=== PATIENT | male | born 1960 | race American Indian/Alaskan Native ===

== ENCOUNTER 2021-05-06 13:24 | Observation (INO) | payer OTHER ==
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
--- NOTE | 2021-05-06 13:47 | Cat Scan Report ---
CT HEAD WITHOUT CONTRAST INDICATION / CLINICAL INFORMATION: Left arm numbness and tingling. TECHNIQUE: All CT scans at this location are performed using CT dose reduction for ALARA by means of automated exposure control. COMPARISON: None available. FINDINGS: BRAIN PARENCHYMA: No acute intracranial hemorrhage. No evidence of recent infarct. No mass effect or midline shift. VENTRICULAR SYSTEM/EXTRA-AXIAL SPACES: Ventricles are normal for age. No extra-axial fluid collection . ORBITS: Normal as visualized. SKELETAL SYSTEM/SOFT TISSUES: Normal bones and soft tissues. PARANASAL SINUSES/MASTOID AIR CELLS: No significant abnormality. ADDITIONAL FINDINGS: None. IMPRESSION: 1. No acute intracranial abnormality. COMMUNICATION: Time of Communication (REFINERY TECHNICIAN/CDT): 12:42 Licensed Practitioner Receiving Report: Dr. Fernandez Signer Name: Karthik Alfaro MD Signed: 05/06/2021 1:42 PM Workstation Name: [id number]
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
[2021-05-06 14:27] LABS: Basophils % (Auto) 0.2 % (0.0-1.8); Eosinophils % (Auto) 0.2 % (0.0-4.3); Lymphocytes # (Auto) 0.6 K/mm3 (1.2-5.4); Lymphocytes % (Auto) 8.5 % (13.4-35.0); Mean Corpuscular HGB Conc 32 % (32-34); Mean Corpuscular Volume 94 fl (84-94); Monocytes # (Auto) 0.7 K/mm3 (0.0-0.8); Monocytes % (Auto) 10.9 % (0.0-7.3); Platelet Count 394 K/mm3 (140-440); Red Blood Count 1.77 M/mm3 (3.65-5.03)
[2021-05-06 14:29] LABS: Hemoglobin 5.3 gm/dl (11.8-15.2)
[2021-05-06 14:30] LABS: Hematocrit 16.7 % (35.5-45.6); Red Cell Distribution Width 21.4 % (13.2-15.2)
--- NOTE | 2021-05-06 14:30 | Cat Scan Report ---
CTA NECK WITH CONTRAST HISTORY: "Stroke COMPARISON: None. TECHNIQUE: Routine CTA of the neck was performed. 3-D/MIP reformats were postprocessed. Percentage s tenosis is determined by direct quantitative measurements of diseased internal carotid artery diamete r compared with normal distal internal carotid artery reference segments or by criteria similar to NA SCET where applicable.All CT scans at this location are performed using CT dose reduction for ALARA b y means of automated exposure control CONTRAST: 100 ml of Omnipaque 350 FINDINGS: Aortic arch: No significant abnormality. Cervical vertebral arteries: Right vertebral artery: Origin of the right vertebral artery is stenotic from a calcified atheromatou s plaque; however, extraosseous, foraminal, extraspinal and intradural segments of right vertebral ar perlita normal Left vertebral artery: Normal origin; nonstenotic calcified atheromatous plaque 1 cm from the origin; extraosseous, foraminal, extraspinal and intradural segments of right vertebral artery normal Common carotid arteries: No significant abnormality. Carotid bifurcations: Normal Cervical internal carotid arteries: No significant abnormality. Additional findings: None. IMPRESSION: 1. Both carotid bifurcations are normal Stenotic origin of right vertebral artery; foraminal, extraspinal and intradural segments of both donell tebral arteries normal Signer Name: Antony Escobar MD Signed: 05/06/2021 2:25 PM Workstation Name: [id number]
--- NOTE | 2021-05-06 14:32 | Cat Scan Report ---
CTA HEAD WITH CONTRAST HISTORY: Stroke COMPARISON: None. TECHNIQUE: Routine non-contrast CT Head, CTA of the head and post-contrast CT Head are performed. 3-D /MIP reformats postprocessed. All CT scans at this location are performed using CT dose reduction for ALARA by means of automated exposure control CONTRAST: 100 ml of Omnipaque 350 FINDINGS: CTA Head: Intracranial vertebral arteries: No significant abnormality. Basilar artery: No significant abnormality. Posterior cerebral arteries: No significant abnormality. Intracranial internal carotid arteries: No significant abnormality. Anterior cerebral arteries: No significant abnormality. Middle cerebral arteries: No significant abnormality. Dural venous sinuses:Not optimally opacified. No significant abnormality. Additional findings: None. IMPRESSION: 1. No significant abnormality. Signer Name: Antony Escobar MD Signed: 05/06/2021 2:27 PM Workstation Name: [id number]
[2021-05-06 14:40] LABS: INR 0.94 (0.87-1.13); Partial Thromboplastin Time 24.2 Sec. (24.2-36.6)
[2021-05-06 14:41] LABS: Thrombin Time 16.9 Sec. (15.1-19.6)
[2021-05-06 14:49] LABS: Creatine Kinase MB 1.1 ng/mL (0.0-4.0)
[2021-05-06 16:09] LABS: Hematocrit 18.4 % (35.5-45.6); Hemoglobin 5.6 gm/dl (11.8-15.2)
[2021-05-06] MEDS ORDERED: SODIUM CHLORIDE 0.9% 500 ML 500 ML IV ONE (16:40)
[2021-05-06] MEDS ORDERED: SODIUM CHLORIDE 0.9% 1000 ML 1,000 ML ONE (17:45)
[2021-05-06] MEDS ORDERED: ACETAMINOPHEN 325 MG TAB PO PRN ×2 (22:06→22:10)
[2021-05-06] MEDS ORDERED: oxyCODONE /ACETAMINOPHEN 5-325MG TAB PO PRN (22:06)
[2021-05-06] MEDS ORDERED: ONDANSETRON 4 MG/2 ML INJ IV PRN ×2 (22:06→22:10)
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
[2021-05-06] MEDS: FAMOTIDINE 20 MG/2 ML INJ IV SCH (22:50)
[2021-05-06] MEDS: SODIUM CHLORIDE 0.9% 1000 ML 1,000 ML IV SCH (23:06)
[2021-05-07 00:14] LABS: Basophils % (Auto) 0.2 % (0.0-1.8); Eosinophils % (Auto) 0.3 % (0.0-4.3); Hematocrit 24.3 % (35.5-45.6); Hemoglobin 7.6 gm/dl (11.8-15.2); Lymphocytes # (Auto) 0.9 K/mm3 (1.2-5.4); Lymphocytes % (Auto) 15.4 % (13.4-35.0); Mean Corpuscular HGB Conc 31 % (32-34); Mean Corpuscular Volume 91 fl (84-94); Monocytes # (Auto) 0.7 K/mm3 (0.0-0.8); Monocytes % (Auto) 11.8 % (0.0-7.3); Platelet Count 360 K/mm3 (140-440); Red Blood Count 2.68 M/mm3 (3.65-5.03); Red Cell Distribution Width 19.3 % (13.2-15.2)
[2021-05-07 06:10] LABS: Basophils % (Auto) 0.5 % (0.0-1.8); Eosinophils % (Auto) 0.5 % (0.0-4.3); Hematocrit 23.9 % (35.5-45.6); Hemoglobin 7.5 gm/dl (11.8-15.2); Lymphocytes # (Auto) 1.2 K/mm3 (1.2-5.4); Lymphocytes % (Auto) 21.2 % (13.4-35.0); Mean Corpuscular HGB Conc 32 % (32-34); Mean Corpuscular Volume 91 fl (84-94); Monocytes # (Auto) 0.7 K/mm3 (0.0-0.8); Monocytes % (Auto) 11.6 % (0.0-7.3); Platelet Count 369 K/mm3 (140-440); Red Blood Count 2.61 M/mm3 (3.65-5.03); Red Cell Distribution Width 19.8 % (13.2-15.2)
[2021-05-07 06:25] LABS: Alanine Aminotransferase 12 units/L (7-56); Albumin 3.1 g/dL (3.9-5); BUN/Creatinine Ratio 17; Blood Urea Nitrogen 12 mg/dL (9-20); Calcium 8.6 mg/dL (8.4-10.2); Hemolysis Index 1
[2021-05-07 09:28] LABS: % Iron Saturation 9.33 %; Chol/HDL Ratio 2.2 %
[2021-05-07] MEDS: ASPIRIN 325 MG TAB PO SCH (10:46)
[2021-05-07] MEDS: FAMOTIDINE 20 MG/2 ML INJ IV SCH ×2 (10:50→21:13)
[2021-05-07] MEDS: HEPARIN 5,000 UNIT/1 ML VIAL SUB-Q SCH ×2 (10:50→21:13)
--- NOTE | 2021-05-07 11:42 | Progress Note ---
Assessment and Plan Assessment and plan: Patient is a 60-year-old male with history of hypertension, tobacco dependence, and chronic anemia (with multiple work-ups including colonoscopy) who presented with acute left-sided weakness and facial droop with resolution of symptoms within 90 minutes that was found to be secondary to TIA. #TIA #Tobacco dependence #Smoking cessation counseling -Complete resolution of symptoms. -CT head Noncon, CTA head and neck are within normal limits. -Pending TTE and bilateral carotid Dopplers. -Starting ASA 325 mg daily and atorvastatin 40 mg daily. -Counseled patient on importance of smoking cessation given multiple comorbidities and TIA presentation. Patient expressed understanding. Continue nicotine patch daily. -Time: +15 minutes #Chronic iron deficiency anemia -Hemoglobin 5.6 on presentation -Transfused 1 unit packed RBC with improvement of hemoglobin to 7.5. Patient endorses -Longstanding history of chronic anemia with extensive work-up (including colonoscopy) without true etiology. -Starting ferrous sulfate daily. -Transfuse if hemoglobin less than 7 or patient becomes symptomatic. #Advanced care planning -Disease education conducted, care plan discussed, diagnoses discussed, prognosis discussed, and patient acknowledges understanding with care plan -Time: +30 minutes Disposition Plan: Continue medical management Total Time Spent with Patient (Minutes): 45-minute History Interval history: No acute events overnight. Hospitalist Physical - Constitutional Vitals: Temp Pulse Resp BP Pulse Ox 97.9 F 77 20 161/78 98 05/07/21 08:16 05/07/21 08:16 05/07/21 08:16 05/07/21 08:16 05/07/21 11:07 General appearance: Present: no acute distress, well-nourished - EENT Eyes: Present: PERRL, EOM intact ENT: hearing intact, clear oral mucosa, dentition normal - Neck Neck: Present: supple, normal ROM - Respiratory Respiratory effort: normal Respiratory: bilateral: CTA - Cardiovascular Rhythm: regular Heart Sounds: Present: S1 & S2 - Extremities Extremities: no ischemia, pulses intact, pulses symmetrical, No edema, normal temperature, normal color, Full ROM Peripheral Pulses: within normal limits - Abdominal General gastrointestinal: soft, non-tender, non-distended, normal bowel sounds - Integumentary Integumentary: Present: clear, warm, dry - Psychiatric Psychiatric: appropriate mood/affect, intact judgment & insight, memory intact, cooperative - Neurologic Neurologic: CNII-XII intact, moves all extremities - Allied Health Allied health notes reviewed: nursing HEART Score - HEART Score Troponin: Troponin T < 0.010 ng/mL (0.00-0.029) 05/06/21 14:10 Results - Labs CBC & Chem 7: 05/07/21 04:31 05/07/21 04:31 Labs: Laboratory Last Values WBC 5.8 K/mm3 (4.5-11.0) 05/07/21 04:31 RBC 2.61 M/mm3 (3.65-5.03) L 05/07/21 04:31 Hgb 7.5 gm/dl (11.8-15.2) L 05/07/21 04:31 Hct 23.9 % (35.5-45.6) L 05/07/21 04:31 MCV 91 fl (84-94) 05/07/21 04:31 MCH 29 pg (28-32) 05/07/21 04:31 MCHC 32 % (32-34) 05/07/21 04:31 RDW 19.8 % (13.2-15.2) H 05/07/21 04:31 Plt Count 369 K/mm3 (140-440) 05/07/21 04:31 Lymph % (Auto) 21.2 % (13.4-35.0) 05/07/21 04:31 Mercer % (Auto) 11.6 % (0.0-7.3) H 05/07/21 04:31 Eos % (Auto) 0.5 % (0.0-4.3) 05/07/21 04:31 Baso % (Auto) 0.5 % (0.0-1.8) 05/07/21 04:31 Lymph # (Auto) 1.2 K/mm3 (1.2-5.4) 05/07/21 04:31 Mercer # (Auto) 0.7 K/mm3 (0.0-0.8) 05/07/21 04:31 Eos # (Auto) 0.0 K/mm3 (0.0-0.4) 05/07/21 04:31 Baso # (Auto) 0.0 K/mm3 (0.0-0.1) 05/07/21 04:31 Seg Neutrophils % 66.2 % (40.0-70.0) 05/07/21 04:31 Seg Neutrophils # 3.9 K/mm3 (1.8-7.7) 05/07/21 04:31 PT 13.6 Sec. (12.2-14.9) 05/06/21 14:10 INR 0.94 (0.87-1.13) 05/06/21 14:10 APTT 24.2 Sec. (24.2-36.6) 05/06/21 14:10 Thrombin Time 16.9 Sec. (15.1-19.6) 05/06/21 14:10 Sodium 137 mmol/L (137-145) 05/07/21 04:31 Potassium 3.6 mmol/L (3.6-5.0) 05/07/21 04:31 Chloride 106.7 mmol/L (98-107) 05/07/21 04:31 Carbon Dioxide 20 mmol/L (22-30) L 05/07/21 04:31 Anion Gap 14 mmol/L 05/07/21 04:31 BUN 12 mg/dL (9-20) 05/07/21 04:31 Creatinine 0.7 mg/dL (0.8-1.3) L 05/07/21 04:31 Estimated GFR > 60 ml/min 05/07/21 04:31 BUN/Creatinine Ratio 17 % 05/07/21 04:31 Glucose 89 mg/dL (75-100) 05/07/21 04:31 POC Glucose 71 mg/dL (70-105) 05/06/21 22:09 Calcium 8.6 mg/dL (8.4-10.2) 05/07/21 04:31 Iron 32 ug/dL (49-181) L 05/07/21 08:24 TIBC 343 mcg/dL (250-450) 05/07/21 08:24 % Saturation 9.33 % 05/07/21 08:24 Transferrin 293 mg/dl (180-329) 05/07/21 08:24 Total Bilirubin 0.30 mg/dL (0.1-1.2) 05/07/21 04:31 AST 17 units/L (5-40) 05/07/21 04:31 ALT 12 units/L (7-56) 05/07/21 04:31 Alkaline Phosphatase 85 units/L (35-129) 05/07/21 04:31 Total Creatine Kinase 72 units/L (55-170) 05/06/21 14:10 CK-MB (CK-2) 1.1 ng/mL (0.0-4.0) 05/06/21 14:10 CK-MB (CK-2) Rel Index 1.5 (0-4) 05/06/21 14:10 Troponin T < 0.010 ng/mL (0.00-0.029) 05/06/21 14:10 Total Protein 5.8 g/dL (6.3-8.2) L 05/07/21 04:31 Albumin 3.1 g/dL (3.9-5) L 05/07/21 04:31 Albumin/Globulin Ratio 1.1 % 05/07/21 04:31 Triglycerides 75 mg/dL (2-149) 05/07/21 08:24 Cholesterol 163 mg/dL (50-199) 05/07/21 08:24 LDL Cholesterol Direct 74 mg/dL (50-130) 05/07/21 08:24 HDL Cholesterol 74 mg/dL (40-59) H 05/07/21 08:24 Cholesterol/HDL Ratio 2.20 % 05/07/21 08:24 Vitamin B12 299.9 pg/mL (211-911) 05/07/21 08:24 Blood Type B POSITIVE 05/06/21 15:29 Antibody Screen Negative 05/06/21 15:29 Crossmatch See Detail 05/06/21 15:29 Bond/IV: Voiding Method Toilet Active Medications - Current Medications Current Medications: Generic Name Dose Route Start Last Admin Trade Name Freq PRN Reason Stop Dose Admin Acetaminophen 650 mg 05/06/21 22:06 Acetaminophen 325 Mg Tab PO Q4H PRN Pain MILD(1-3)/Fever >100.5/MORRIS Aspirin 325 mg 05/07/21 10:00 05/07/21 10:46 Aspirin 325 Mg Tab PO 325 mg QDAY BESS Administration Atorvastatin Calcium 40 mg 05/07/21 22:00 Atorvastatin 40 Mg Tab PO QHS BESS Famotidine 20 mg 05/06/21 23:00 05/07/21 10:50 Famotidine 20 Mg/2 Ml Inj IV 20 mg BID BESS Administration Heparin Sodium (Porcine) 5,000 unit 05/07/21 10:00 05/07/21 10:50 Heparin 5,000 Unit/1 Ml Vial SUB-Q 5,000 unit Q12HR BESS Administration Sodium Chloride 1,000 mls @ 75 mls/hr 05/06/21 22:15 05/07/21 01:00 Nacl 0.9% 1000 Ml IV 75 mls/hr DIRECT BESS Infusion Ondansetron HCl 4 mg 05/06/21 22:06 Ondansetron 4 Mg/2 Ml Inj IV Q8H PRN Nausea And Vomiting Oxycodone/Acetaminophen 1 tab 05/06/21 22:06 Oxycodone /Acetaminophen 5-325mg Tab PO Q6H PRN Pain, Moderate (4-6) Sodium Chloride 10 ml 05/07/21 10:00 Sodium Chloride 0.9% 10 Ml Flush Syringe IV BID BESS Sodium Chloride 10 ml 05/06/21 22:06 05/06/21 22:50 Sodium Chloride 0.9% 10 Ml Flush Syringe IV 10 ml PRN PRN Administration LINE FLUSH
--- NOTE | 2021-05-07 17:47 | Consultation ---
History of Present Illness - Reason for Consult Consult date: 05/07/21 Anemia Requesting physician: JACQUELYN ORDAZ - History of Present Illness Mr. Rodriguez is a 60-year-old man who was brought in with a TIA lasting approximately 45 minutes in the hospital with left-sided weakness, facial droop, and drooling. He was noted to be profoundly anemic on admission with a hem oglobin of 5.6 and iron saturation of 9%. GI consultation is obtained. Patient notes that he has had a history of anemia but he is unclear on the details. He recalls getting his first colonoscopy at age 30, and states that he has had 15 of them thus far. The last colonoscopy was 3 years ago at the [place]. He notes that he was transfused 5 years ago and underwent an upper endoscopy as well as a colonoscopy at that time but he does not know the results. He also believes he underwent pill camera endoscopy 10 years ago. He states he was told to stay on oral iron in the past, but has not been taking any. His bowel movements are regular, qd, with no melena or hematochezia. There is been no abdominal pain nausea vomiting. He has lost 10 pounds over the last 6 months but states that he only eats 1 meal a day. He denies any history of peptic ulcer disease, and has no chest pain or shortness of breath. Medications reviewed Past History Past Medical History: anemia, hypertension Past Surgical History: Other (Carpal tunnel surgery) Social history: , smoking, alcohol abuse (1/4 to 1/2 pt/d) Medications and Allergies Allergies Allergy/AdvReac Type Severity Reaction Status Date / Time No Known Allergies Allergy Verified 05/06/21 22:14 Home Medications Medication Instructions Recorded Confirmed Last Taken Type No Known Home Medications [No 05/06/21 05/06/21 Unknown History Reported Home Medications] Active Meds: Active Medications Acetaminophen (Acetaminophen 325 Mg Tab) 650 mg PO Q4H PRN PRN Reason: Pain MILD(1-3)/Fever >100.5/MORRIS Aspirin (Aspirin 325 Mg Tab) 325 mg PO QDAY [facility] Last Admin: 05/07/21 10:46 Dose: 325 mg Documented by: Atorvastatin Calcium (Atorvastatin 40 Mg Tab) 40 mg PO QHS [facility] Famotidine (Famotidine 20 Mg/2 Ml Inj) 20 mg IV BID [facility] Last Admin: 05/07/21 10:50 Dose: 20 mg Documented by: Heparin Sodium (Porcine) (Heparin 5,000 Unit/1 Ml Vial) 5,000 unit SUB-Q Q12HR BESS Last Admin: 05/07/21 10:50 Dose: 5,000 unit Documented by: Sodium Chloride (Nacl 0.9% 1000 Ml) 1,000 mls @ 75 mls/hr IV DIRECT BESS Last Infusion: 05/07/21 01:00 Dose: 75 mls/hr Documented by: Ondansetron HCl (Ondansetron 4 Mg/2 Ml Inj) 4 mg IV Q8H PRN PRN Reason: Nausea And Vomiting Oxycodone/Acetaminophen (Oxycodone /Acetaminophen 5-325mg Tab) 1 tab PO Q6H PRN PRN Reason: Pain, Moderate (4-6) Sodium Chloride (Sodium Chloride 0.9% 10 Ml Flush Syringe) 10 ml IV BID BESS Sodium Chloride (Sodium Chloride 0.9% 10 Ml Flush Syringe) 10 ml IV PRN PRN PRN Reason: LINE FLUSH Last Admin: 05/06/21 22:50 Dose: 10 ml Documented by: Review of Systems All systems: negative (as per HPI) Exam - Constitutional Vitals: Temp Pulse Resp BP Pulse Ox 98.3 F 78 16 154/88 100 05/07/21 16:15 05/07/21 16:15 05/07/21 16:15 05/07/21 16:15 05/07/21 16:15 General appearance: Present: no acute distress - EENT Eyes: Present: PERRL, EOM intact ENT: hearing intact - Respiratory Respiratory effort: normal Respiratory: bilateral: CTA - Cardiovascular Rhythm: regular Heart Sounds: Present: S1 & S2 - Extremities Extremities: No edema - Abdominal General gastrointestinal: Present: soft, non-tender Results - Labs CBC & Chem 7: 05/07/21 04:31 05/07/21 04:31 Labs: Abnormal lab results 05/06/21 05/07/21 05/07/21 Range/Units 15:29 00:03 04:31 RBC 2.68 L 2.61 L (3.65-5.03) M/mm3 Hgb 7.6 L 7.5 L (11.8-15.2) gm/dl Hct 24.3 L 23.9 L (35.5-45.6) % MCHC 31 L (32-34) % RDW 19.3 H 19.8 H (13.2-15.2) % Mclean % (Auto) 11.8 H 11.6 H (0.0-7.3) % Lymph # (Auto) 0.9 L (1.2-5.4) K/mm3 Seg Neutrophils % 72.3 H (40.0-70.0) % Carbon Dioxide (22-30) mmol/L Creatinine (0.8-1.3) mg/dL Hemoglobin A1c (4-6) % Iron (49-181) ug/dL Total Protein (6.3-8.2) g/dL Albumin (3.9-5) g/dL HDL Cholesterol (40-59) mg/dL Crossmatch See Detail 05/07/21 05/07/21 05/07/21 Range/Units 04:31 08:24 08:24 RBC (3.65-5.03) M/mm3 Hgb (11.8-15.2) gm/dl Hct (35.5-45.6) % MCHC (32-34) % RDW (13.2-15.2) % Mclean % (Auto) (0.0-7.3) % Lymph # (Auto) (1.2-5.4) K/mm3 Seg Neutrophils % (40.0-70.0) % Carbon Dioxide 20 L (22-30) mmol/L Creatinine 0.7 L (0.8-1.3) mg/dL Hemoglobin A1c < 4.0 L (4-6) % Iron 32 L (49-181) ug/dL Total Protein 5.8 L (6.3-8.2) g/dL Albumin 3.1 L (3.9-5) g/dL HDL Cholesterol (40-59) mg/dL Crossmatch 05/07/21 Range/Units 08:24 RBC (3.65-5.03) M/mm3 Hgb (11.8-15.2) gm/dl Hct (35.5-45.6) % MCHC (32-34) % RDW (13.2-15.2) % Mclean % (Auto) (0.0-7.3) % Lymph # (Auto) (1.2-5.4) K/mm3 Seg Neutrophils % (40.0-70.0) % Carbon Dioxide (22-30) mmol/L Creatinine (0.8-1.3) mg/dL Hemoglobin A1c (4-6) % Iron (49-181) ug/dL Total Protein (6.3-8.2) g/dL Albumin (3.9-5) g/dL HDL Cholesterol 74 H (40-59) mg/dL Crossmatch Assessment and Plan 1. Iron deficiency anemia -this appears to be a chronic problem, though the history is vague. Patient has no evidence of tracie GI bleeding. He may well have a malabsorption problem and is supposed to be on chronic iron supplementation. [facility] but we do not. Given that there is no evidence of active bleeding, I would not plan on inpatient endoscopic evaluation. -Check stool for occult blood -Would discharge patient on oral iron supplementation -[facility]
[2021-05-07] MEDS: SODIUM CHLORIDE 0.9% 1000 ML 1,000 ML IV SCH (18:04)
[2021-05-08 04:51] LABS: Basophils % (Auto) 0.5 % (0.0-1.8); Eosinophils # (Auto) 0.1 K/mm3 (0.0-0.4); Eosinophils % (Auto) 1.5 % (0.0-4.3); Hemoglobin 7.2 gm/dl (11.8-15.2); Lymphocytes # (Auto) 1.5 K/mm3 (1.2-5.4); Lymphocytes % (Auto) 28.6 % (13.4-35.0); Mean Corpuscular HGB Conc 31 % (32-34); Mean Corpuscular Volume 93 fl (84-94); Monocytes # (Auto) 0.6 K/mm3 (0.0-0.8); Monocytes % (Auto) 10.7 % (0.0-7.3); Platelet Count 338 K/mm3 (140-440); Red Blood Count 2.48 M/mm3 (3.65-5.03); Red Cell Distribution Width 19.5 % (13.2-15.2)
[2021-05-08 05:10] LABS: Blood Urea Nitrogen 8 mg/dL (9-20); Calcium 8.2 mg/dL (8.4-10.2); Hemolysis Index 5
[2021-05-08 05:27] LABS: BUN/Creatinine Ratio 11
[2021-05-08 08:35] VITALS: BP 168/74
--- NOTE | 2021-05-08 08:53 | Electrocardiograph Report ---
[facility] Test Date: 2021-05-06 Test Time: 14:12:55 Pat Name: LALO SOUTH Department: Room: A459 Gender: M [employer] Caseworker: : [id number] Requested By: WENDY HENDERSON Order Number: [id number] Reading MD: Reece Beltran Measurements Intervals [place] Rate: 86 P: 86 PA: 122 QRS: 83 QRSD: 90 T: 78 QT: 404 QTc: 483 Interpretive Statements Sinus rhythm Consider left ventricular hypertrophy No previous ECG available for comparison Electronically Signed On 05-08-2021 8:53:30 EST by Reece Beltran
[2021-05-08] MEDS ORDERED: MAGNESIUM SULFATE 2 GM/50 ML BAG IV ONE (09:00)
[2021-05-08] MEDS ORDERED: CALCIUM GLUCONATE 1,000 MG in SODIUM CHLORIDE 0.9% 100 ML IV ONE (09:00)
[2021-05-08] MEDS: FAMOTIDINE 20 MG/2 ML INJ IV SCH (09:41)
[2021-05-08] MEDS: HEPARIN 5,000 UNIT/1 ML VIAL SUB-Q SCH (09:41)
[2021-05-08] MEDS: ASPIRIN 325 MG TAB PO SCH (09:41)
[2021-05-08] MEDS ORDERED: CALCIUM CARBONATE 500 MG TAB CHEW PO NR (10:30)
[2021-05-08] MEDS ORDERED: MAGNESIUM OXIDE 400 MG TAB PO NR (10:30)
--- NOTE | 2021-05-08 10:50 | Discharge Summary ---
Providers - Providers Date of Admission: 05/06/21 14:38 Date of discharge: 05/08/21 Attending physician: JUAN LI MD Primary care physician: JOINT FILLER Hospitalization Reason for admission: TIA Condition: Stable Pertinent studies: Reviewed. Procedures: None. Hospital course: Patient is a 60-year-old male with history of hypertension, tobacco dependence, and chronic anemia (with multiple work-ups including colonoscopy) who presented with acute left-sided weakness and facial droop with resolution of symptoms within 90 minutes that was found to be secondary to TIA. Patient underwent CT head Noncon and TTE that were found to be within normal limits. CTA head and neck was also performed and found to be within normal limits. The patient was counseled about medication compliance, and patient expressed understanding. Patient will follow up with his primary care provider at the [facility]. The patient was started on atorvastatin 40 mg daily, ASA 325 mg daily, and ferrous sulfate 324 mg daily. Disposition: 01 HOME / SELF CARE / HOMELESS Final Discharge Diagnosis (Prints w/discharge instructions): TIA, tobacco dependence, chronic iron deficiency anemia, hypertension Time spent for discharge: 45 minutes Core Measure Documentation - Palliative Care Palliative Care/ Comfort Measures: Not Applicable - Core Measures Any of the following diagnoses?: none - VTE Discharge Requirements Deep Vein Thrombosis/Pulmonary Embolism Present on Admission: No Has pt received <5 days of overlap therapy or INR<2.0: No (Not indicated) Anticoagulant overlap therapy prescribed at discharge: No Contraindication No Overlap Therapy order at DC: Not Indicated - Acute [place] Discharge Requirements Aspirin at discharge: Yes GENNY/ARB for LVSD if EF <40%: Not Applicable Reason for no GENNY/ARB: Medical contraindication (Not indicated) Beta monet at discharge: No Reason for no beta monet on DC: Medical contraindication (Not indicated) Statin for LDL = or >100 mg/dl on DC: Yes - Heart Failure Discharge Requirements GENNY/ARB for LVSD if EF <40%: Not Applicable Reason for no GENNY/ARB: Medical contraindication (Not indicated) Beta monet at discharge: No Reason for no beta monet on DC: Medical contraindication (Not indicated) - Stroke Discharge Requirements Statin for LDL = or >70 mg/dl on DC: Yes Anticoag for atrial fib/atrial flutter: No Reason for no anticoag for AF/F on DC: Not Indicated Antithrombotic for ischemic stroke: No Reason for no antithrombotic on DC: Not Indicated Exam - Constitutional Vitals: Temp Pulse Resp BP Pulse Ox 98.1 F 89 18 168/74 100 05/08/21 07:38 05/08/21 07:38 05/08/21 07:38 05/08/21 07:38 05/08/21 09:15 General appearance: Present: no acute distress, well-nourished - EENT Eyes: Present: PERRL, EOM intact ENT: hearing intact, clear oral mucosa, dentition normal - Neck Neck: Present: supple, normal ROM - Respiratory Respiratory effort: normal Respiratory: bilateral: CTA - Cardiovascular Rhythm: regular Heart Sounds: Present: S1 & S2 - Extremities Extremities: no ischemia, pulses intact, pulses symmetrical, No edema, normal temperature, normal color, Full ROM Peripheral Pulses: within normal limits - Abdominal General gastrointestinal: Present: soft, non-tender, non-distended, normal bowel sounds Male genitourinary: Present: deferred - Rectal Rectal Exam: deferred - Integumentary Integumentary: Present: clear, warm, dry - Musculoskeletal Musculoskeletal: strength equal bilaterally - Psychiatric Psychiatric: appropriate mood/affect, intact judgment & insight, memory intact, cooperative - Neurologic Neurologic: CNII-XII intact, moves all extremities - Allied Health Allied health notes reviewed: nursing Plan Activity: no restrictions Diet: low fat, low salt Care Plan Goals: Patient safe for discharge home. Assessment: The patient was admitted for TIA workup. The patient had a complete resolution of symptoms. CT brain noncontrast was negative, and TTE was negative for PFO. The patient will follow up with his PCP ([facility]) for further management. THe patient was counseled about medication compliance. The patient was found to have anemia with a hemoglobin of 6.7 requiring 1U pRBC transfusion. The patient endorses this being a chronic condition that has been worked up with numerous colonoscopies. The patient is safe for discharge home. Follow up with: PRIMARY CARE, [Primary Care Provider] - 7 Days Prescriptions: AtorvaSTATin [Lipitor] 40 mg PO QHS #30 tablet Aspirin 325 mg PO QDAY #30 tablet Ferrous Sulfate [Ferrous Sulfate 324 MG] 324 mg PO DAILY #30 tablet.
--- NOTE | 2021-05-08 11:50 | Vascular Lab Report ---
DUPLEX DOPPLER ULTRASOUND CAROTID, BILATERAL INDICATION / CLINICAL INFORMATION: TIA. COMPARISON: CTA neck 05/06/2021. FINDINGS: RIGHT CAROTID: No significant atherosclerotic plaque. - PLAQUE ESTIMATE (%): < 50% - CCA velocity: 51 cm/sec. - ICA peak systolic velocity: 100 cm/sec. - ICA/CCA PSV Ratio: Less than 2. Right Vertebral Artery: Antegrade flow. LEFT CAROTID: No significant atherosclerotic plaque. - PLAQUE ESTIMATE (%): < 50% - CCA velocity: 64 cm/sec. - ICA peak systolic velocity: 100 cm/sec. - ICA/CCA PSV Ratio: Less than 2. Left Vertebral Artery: Antegrade flow. IMPRESSION: 1. Right Internal Carotid Artery: Normal. No stenosis. 2. Left Internal Carotid Artery: Normal. No stenosis. Velocity criteria are extrapolated from diameter data as defined by the Society of Radiologists [place] [facility] Consensus Conference, Radiology 2003; 229;340-346. NO STENOSIS (NORMAL) - Plaque = none; ICA PSV < 125 cm/sec; ICA/CCA PSV Ratio < 2.0 <50% STENOSIS - Plaque < 50%; ICA PSV < 125 cm/sec; ICA/CCA PSV Ratio < 2.0 50-69% STENOSIS - Plaque > 50%; ICA PSV = 125-230 cm/sec; ICA/CCA PSV Ratio = 2.0-4.0 >70% BUT <100% STENOSIS - Plaque > 50%; ICA PSV > 230 cm/sec; ICA/CCA PSV Ratio > 4.0 NEAR OCCLUSION - Plaque = visible lumen; ICA PSV = high/low/none; ICA/CCA PSV Ratio = variable TOTAL OCCLUSION - Plaque = no lumen; ICA PSV = none; ICA/CCA PSV Ratio = N/A Scribed by: Monica So RDMS, RVT Scribed: 05/08/2021 10:44 AM I have reviewed the images, agree with this report, and edited this report as needed. Signer Name: Xander Patel MD Signed: 05/08/2021 11:46 AM Workstation Name: [email or web address] [id number]
== END 2021-05-08 10:45 | disposition home or self-care (01) ==
LOC: ED 13:24 → 4A 14:38
PROVIDERS: ADMIT Internal Medicine; ATTEND Student in an Organized Health Care Education/Training Program
DX: G45.9 Transient cerebral ischemic attack, unspecified (principal); D50.9 Iron deficiency anemia, unspecified; F17.210 Nicotine dependence, cigarettes, uncomplicated; Z79.82 Long term (current) use of aspirin; Z79.899 Other long term (current) drug therapy; Z98.890 Other specified postprocedural states
CPT/HCPCS: 36415; 70450; 70496; 70498; 80048; 80053; 80061; 82550; 82553; 82607; 82747; 82962; 83036; 83550; 83735; 84100; 84484; 85014; 85018; 85025; 85610; 85670; 85730; 86850; 86900; 86901; 86920; 93005; 93306; 93880; 96365; 96366; 96368; 96372; 96375; 96376; 99291; 99406; G0378; J0610; J1644; J3475; J3490; J7030; P9016; Q9967; Q0162